=== PATIENT | male | born 2005 | race Caucasian/White ===

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

== ENCOUNTER → 2025-04-03 | Outpatient (CLI) | payer OTHER, MEDICAID, SELFPAY ==
--- NOTE | 2025-04-03 15:38 | RAD_ITS ---
PROCEDURE: RAD/Abdomen Single View
[2025-04-03 18:06] LABS: Hematocrit 46.0 % (40-54); Hemoglobin 15.2 g/dL (13.0-16.5); Immature Granulocytes Count 0.160 X10^3/uL (0.0-0.0); Mean Corp Hgb Conc 33.0 g/dL (32-36); Mean Corpuscular Volume 86.3 fL (80-94); Mean Platelet Vol. 9.7 fl (6.2-12.0); NRBC Flagged by Analyzer 0 % (0-5); Platelet Count 327 K/mm3 (150-450); RBC Distribution Width CV 13.4 % (11.6-14.6); RBC Distribution Width SD 41.8 fl (35.1-43.9); Red Blood Count 5.33 M/mm3 (4.6-6.2); White Blood Count 17.0 K/mm3 (4.4-11.0)
[2025-04-03 18:52] LABS: Vitamin D,25 Hydroxy 43.5 ng/mL (30-100)
[2025-04-03 19:14] LABS: AST(SGOT) 99 U/L (<=37); Alanine Aminotransfer ALT/SGPT 161 U/L (<=46); Albumin, Serum 4.6 g/dL (3.5-5.0); Alkaline Phosphatase 57 U/L (40-129); Anion Gap 11 (5-15); BUN 16 mg/dL (4-19); BUN/Creat Ratio UNABLE TO CALCULATE RATIO (10-20); CRP < 3.00 mg/L (0.0-3.0); Calcium,Total 9.5 mg/dL (7.6-11.0); Carbon Dioxide 27.2 mmol/L (21.0-32.0); Chloride 100 mmol/L (98-108); Globulin 2.3 g/dL (2.2-4.2); Glucose 78 mg/dL (70-99); Potassium 4.4 mmol/L (3.3-5.1)
== END | disposition home or self-care (01) ==
PROVIDERS: PCP Pediatrics; Referring Provider Pediatrics; Visit Provider Pediatrics
DX: R10.84 Generalized abdominal pain (principal)
CPT/HCPCS: 36415; 74018; 80053; 82306; 84439; 84443; 85025; 86140